=== PATIENT | female | born 1965 | race Caucasian/White ===

== ENCOUNTER 2024-08-06 18:30 | Emergency (ER) | payer MEDICAID, SELFPAY ==
[2024-08-06 18:42] VITALS: BP 144/85; PULSE 78; TEMP 36.6; O2SAT 98; BMI 30.2
--- NOTE | 2024-08-06 18:59 | XR_ITS ---
[facility] [id number] Patient Name: KOFI VIGIL MRN: [id number] date: 1965 Sex: F Assigned Patient Location: ER Current Patient Location: ER Accession/Order Number: [id number] Exam Date: 08/06/2024 19:40 Report Date: 08/06/2024 20:28 At the request of: MARIA ISABEL CAMPBELL Procedure: XR knee RT 4V EXAM: PLAIN FILM KNEE RIGHT HISTORY: Knee pain. COMPARISON: None TECHNIQUE: 3 views of the knee are submitted for review. FINDINGS: Large suprapatellar effusion. There is chondrocalcinosis. There is no evidence for acute fracture. Bone mineralization is within normal limits. Soft tissues are edematous.. Joint spaces demonstrate degenerative change. XR/XR knee RT 4V IMPRESSION: 1. Large suprapatellar effusion. 2. Degenerative change of the knee. Electronically authenticated by: DANA HARVEY Date: 08/06/2024 20:28
[2024-08-06] MEDS: IBUPROFEN 600 MG TABLET PO (19:20)
[2024-08-06] MEDS: HYDROCODONE/ACET 5-325 MG TABLET 1 TAB PO (19:20)
--- NOTE | 2024-08-06 20:35 | ED.LOWEXI1 ---
HPI HPI - Extremity Injury (Lower) General Chief Complaint: Extremity Injury, Lower Stated Complaint: LOWER EXTREMITY INJURY Time Seen by Provider: 08/06/24 18:42 Source: patient and friend Mode of arrival: walk-in Limitations: no limitations History of Present Illness HPI Narrative: 59-year-old female presents to the emergency department with friend with complaint of right knee injury. Patient states her dog was out on a lead, came department had her, she tripped over a lead, falling, somehow twisting and injuring her knee. Complains of pain, swelling, tenderness. Having some difficulty bending the knee due to the pain and swelling. Denies any other injury, motor or sensory changes, paresthesias. Quality:?As above Severity:?Moderate Timing:?Injury occurred shortly prior to arrival, constant Context: Normal setting and activity? Modifying factors:?Pain worse with palpation or movement Associated symptoms: swelling Related Data Previous Rx's ?Medication ?Instructions ?Recorded hydrocodone 5 mg-acetaminophen 325 1 tab PO Q8H PRN pain 3 days #8 08/06/24 mg tablet tabs ibuprofen 600 mg tablet 600 mg PO Q8H PRN pain #20 tabs 08/06/24 Allergies Allergy/AdvReac Type Severity Reaction Status Date / Time Sulfa (Sulfonamide Allergy Severe Anaphylaxis Verified 08/06/24 18:45 Antibiotics) bacitracin AdvReac Intermediate Rash Verified 08/06/24 18:45 Opioid HPI Opioid Management Most Recent Pain and Opioid Data: Last JAN Pain Assessment 08/06/24 19:20 Review of Systems ROS Constitutional Denies: fatigue or malaise Musculoskeletal Reports: extremity pain, extremity swelling and joint pain Neurological Denies: numbness in extremities or weakness in extremities PFSH PFSH Social History Little interest or pleasure in doing things: not at all Feeling down, depressed, or hopeless: not at all Exam Constitutional Vital Signs, click to edit/add: Last Vital Signs Temp 98 F 08/06/24 18:42 Pulse 78 08/06/24 18:42 Resp 18 08/06/24 18:42 BP 144/85 H 08/06/24 18:42 Pulse Ox 98 08/06/24 18:42 O2 Del Method Room Air 08/06/24 18:42 Documenting provider has reviewed patient's vital signs: yes Common normals: no apparent distress, oriented x3 and alert General appearance: well developed Cardio Peripheral pulses: dorsalis pedis pulses present right 2+ Extremity Other: Right knee: Patient has tenderness, peripatellar swelling throughout the anterior aspect of the knee. She has mild medial joint line tenderness. No appreciable laxity on valgus, varus examination. She has no popliteal tenderness. No other injury noted to the leg. Range of motion somewhat limited due to the pain and swelling with flexion. Able to fully extend the knee No ecchymosis, discoloration, crepitus, deformity, instability, warmth.? Strength 5/5 Neuro Common normals: oriented x3, no focal motor deficits and no sensory deficits noted Sensorium/orientation: alert Psych Common normals: mental status grossly normal and thought process normal Thought process: normal thought process Course Reevaluation(s) Reevaluation #1: On reevaluation, pain is improved with treatment. Discussed with patient and friend results, plan, and disposition. They are agreeable for Time: 20:35 Vital Signs Vital signs: Vital Signs Temperature 98 F 08/06/24 18:42 Pulse Rate 78 08/06/24 18:42 Respiratory Rate 18 08/06/24 18:42 Blood Pressure 144/85 H 08/06/24 18:42 Pulse Oximetry 98 08/06/24 18:42 Oxygen Delivery Method Room Air 08/06/24 18:42 Temperature 98 F 08/06/24 18:42 Pulse Rate 78 08/06/24 18:42 Respiratory Rate 18 08/06/24 18:42 Blood Pressure 144/85 H 08/06/24 18:42 Pulse Oximetry 98 08/06/24 18:42 Oxygen Delivery Method Room Air 08/06/24 18:42 MDM - Extremity Injury (Lower) MDM Narrative Medical decision making narrative: This is a pleasant 59-year-old female presents to the emergency department with complaint of right knee injury. On arrival, afebrile, vital signs stable. Exam, nontoxic, well-appearing patient no distress. Her right knee is swollen with anterior tenderness. She also had some tenderness to the medial joint line. No appreciable laxity was noted on exam. Distal pulses intact. Range of motion somewhat limited due to pain with flexion. Able to fully extend. Sensory intact. Right knee x-ray imaging, per radiologist reveals no acute findings. History and record review Discussion with independent historian: Friend Favor right knee sprain Fracture, dislocation less likely based on imaging. Management Independent interpretation: Imaging: DJD, swelling, effusion Reevaluation: See ED course Disposition ? The patient was discharged. Plan: Patient will be discharged to home. Condition at time of disposition: stable Patient was placed in knee immobilizer, given crutches Prescriptions for Motrin, limited supply of [place] sent to her pharmacy She was advised rest, ice, elevation Advised to follow up with orthopedics, referral information placed on discharge paperwork. Advised to return for any worsening and/or development of new, concerning signs or symptoms PLEASE NOTE: Portions of the medical record may have been produced using electronic occupational rehabilitation aide and may contain errors with respect to translation of words which may not have been identified prior to finalization of the chart. Medical Records Attestation: I reviewed the patient's medical records. Imaging Data Right knee: Radiologist's impression: ITS Impressions Knee X-Ray 08/06/24 18:59 IMPRESSION: 1. Large suprapatellar effusion. 2. Degenerative change of the knee. Electronically authenticated by: DANA HARVEY Date: 08/06/2024 20:28 Discharge Plan Discharge Chief Complaint: Extremity Injury, Lower Clinical Impression: Acute pain of right knee Right knee sprain Qualifiers: Encounter type: initial encounter Involved ligament of knee: unspecified ligament Qualified Code(s): S83.91XA - Sprain of unspecified site of right knee, initial encounter Patient Disposition: Home, Self-Care Time of Disposition Decision: 20:36 Condition: Good Mode of Transportation: Private Vehicle Prescriptions / Home Meds: New hydrocodone-acetaminophen 5-325 mg tablet 1 tab PO Q8H PRN (Reason: pain) 3 Days Qty: 8 0RF ibuprofen 600 mg tablet 600 mg PO Q8H PRN (Reason: pain) Qty: 20 0RF Print Language: Bengali Instructions: Knee Sprain (ED), Crutch Instructions (ED), Swollen Knee Joint (ED) Referrals: Jerry Stanley MD [Physician] - 1 week Procedures ED Ortho Splinting/Casting Orthopedic Splinting/Casting right knee: Additional comments: ED PROCEDURE NOTE: SPLINTING/STRAPPING The ED nurse applied a knee splint/immobilizer to the right knee of the patient. The area was examined post application and there was good alignment and good neurovascular function of the splinted/immobilized body part following the procedure. The patient tolerated the procedure well. Electronically verified by Ky Paiz PA-C
== END 2024-08-06 20:58 | disposition home or self-care (01) ==
PROVIDERS: Emergency Provider Emergency Medicine; PCP Internal Medicine
DX: S83.91XA Sprain of unspecified site of right knee, initial encounter (principal); W01.0XXA Fall on same level from slipping, tripping and stumbling without subsequent striking against object, initial encounter; M25.561 Pain in right knee
CPT/HCPCS: 73564; 99283